=== PATIENT | female | born 1960 | race Caucasian/White ===

== ENCOUNTER 2019-01-13 14:21 | Inpatient (IN) | payer MEDICAID ==
[~2019-01-13] VITALS: Ht 157.5 cm; Wt 52.6 kg
[2019-01-13 14:46] LABS: BASOPHIL % 0.4 % (0-2); PLATELET COUNT 282 x10^3mcL (130-400); RED CELL DISTRIBUTION WIDTH 13.9 % (11.5-14.5)
--- NOTE | 2019-01-13 14:49 | NUR ---
PATIENT AAOX4 PRESENTS TO THE ED WITH C/O ONGOING CHEST PRESSURE X 4 DAYS. PT STS THAT THE PRESSURE RADIATES TO HER BACK AND LEFT ARM. PT HAS BEEN SEEING HER PCP FOR HYPERKALEMIA AND PT WAS RECENTLY PLACED ON A DIET TO CORRECT THE ISSUES. BREATHING E/U, ABD SOFT, NON DISTENDED, NON TENDER. PT C/O NAUSEA THIS MORNING WITH NO EPISODE OF VOMITING. SKIN WARM, DRY AND INTACT. NO OTHER SS OF DISTRESS NOTED. PT PLACED ON ALL MONITORS FOR FURTHER OBSERVATION. WILL CONTINUE TO MONITOR.
--- NOTE | 2019-01-13 15:01 | NUR ---
DR REYEZ BEDSIDE PROVIDING MSE.
[2019-01-13 15:03] LABS: CALCIUM 6.8 mg/dL (8.5-10.1); CARBON DIOXIDE 30.9 mmol/L (21-32); CHLORIDE SERUM 105 mmol/L (98-107); CREATININE SERUM 0.8 mg/dL (0.6-1.0); GFR1 > 60 mL/min; GLUCOSE SERUM 109 mg/dL (74-106); POTASSIUM SERUM 3.9 mmol/L (3.5-5.1); SODIUM SERUM 143 mmol/L (136-145)
[2019-01-13 15:07] LABS: ALBUMIN 4.1 g/dL (3.4-5.0); ALKALINE PHOSPHATASE 105 U/L (46-116); ALT/SGPT 25 U/L (14-59); AST/SGOT 11 U/L (15-37); TOTAL PROTEIN, SERUM 8.1 g/dL (6.4-8.2)
--- NOTE | 2019-01-13 15:18 | NUR ---
MEDICATED PER MD ORDERS
[2019-01-13 15:22] LABS: microscopic required? NO
--- NOTE | 2019-01-13 15:27 | NUR ---
NITRO SL HELD AT THIS TIME. PT STS NO LONGER HAS CHEST PRESSURE. BP 121/79
[2019-01-13 15:53] LABS: urine erythrocyte NEGATIVE (NEGATIVE)
[2019-01-13 15:55] LABS: T4(THYROXINE) 7.6 ug/dL (4.7-13.3)
[2019-01-13 16:29] LABS: AMPHETAMINE QUAL UR NONE DETECTED (See below)
--- NOTE | 2019-01-13 16:36 | NUR ---
PATIENT SITTING ON GURNEY- PT DENIES CHEST PAIN. BREATHING E/U. NAD NOTED.
[2019-01-13] MEDS ORDERED: GOOD SENSE ASPI81 M3 PO (16:47)
[2019-01-13] MEDS ORDERED: ZOCOR20 MG PO (16:47)
[2019-01-13] MEDS ORDERED: BENADRYL ALLERG25 M1 PO (16:47)
[2019-01-13] MEDS ORDERED: BENAZEPRIL HYDR40 M1 PO (16:49)
--- NOTE | 2019-01-13 16:55 | NUR ---
REPORT PROVIDED TO ARELY BARRETO FOR FURTHER CARE OF PATIENT IN TELEMETRY.
--- NOTE | 2019-01-13 17:15 | NUR ---
RECEIVED PT FROM ED VIA JOSE LUIS, CAME IN DUE TO CHEST PAIN. AAOX4. C/O 02/10 HEADACHE. ABLE TO FOLLOW COMMANDS. NO SOB NOTED, LUNG SOUNDS CTA. C/O 10 LEFT SIDED CHEST PAIN DESCRIBED PRESSURE RADIATING ON THE LEFT ARM, SR ON THE MONITOR. C/O NUMBNESS ON THE LEFT ARM. DENIES ABDOMINAL DISCOMFORT. BOWEL SOUNDS ACTIVE. VOIDS. IV SITE PATENT AND INTACT. SIDE RAILS UPX2. CALL LIGHT ON REACH. PRIMARY NURSE ESTEVAN AT BEDSIDE FOR CONTINUITY OF CARE
[2019-01-13 17:29] VITALS: BP 124/74
[2019-01-13 17:35] VITALS: Ht 157.5 cm; Wt 52.6 kg
--- NOTE | 2019-01-13 18:35 | NUR ---
PT LAYING IN BED EATING DINNER. AA/OX4. DENIES CHEST PAIN. DENIES ARREAGA. NO DIZZINESS. NO SOB ON ROOM AIR. CALM/COOPERATIVE. IV WNL TO RFA, SALINE LOCKED. NO N/V. NO S/S OF ACUTE DISTRESS. FAMILY AT BEDSIDE. NSR ON TELE. BED IN LOW POSITION. CALL LIGHT WITHIN REACH. WILL ENDORSE TO ONCOMING SHIFT.
[2019-01-13 19:40] VITALS: BP 110/65
--- NOTE | 2019-01-13 19:51 | NUR ---
RECEIVED PT IN BED AAOX4 FRENCH SPEAKING , PT DENY CHEST PAIN , ON TELE NUMBER 5 THAT SHOWS NSR HR 68, LUNG SOUNDS CTA , ABD SOFT BS ACTIVE X4, HL TO RIGHT F)ARM INTACT FLUSHING WELL , CALL LIGHT WITHIN PT'S REACH , WILL CON'T TO MONITOR AND ASSIST PT WITH CARE .
--- NOTE | 2019-01-14 01:29 | NUR ---
PT'S IS IN BED WITH EYES CLOSED , TELE NSR , HR 78
[2019-01-14 04:49] VITALS: BP 114/71
--- NOTE | 2019-01-14 05:13 | NUR ---
I HAVE REVIEWED THE DATA COLLECTION BY COMMUNICATIONS DIRECTOR (NAME):STEPHANIE NAZARIO ENTERED ON (DATE/TIME): I CONCUR WITH THE DATA AND ANY EXCEPTIONS OR COMMENTS ARE LISTED BELOW:
[2019-01-14 06:09] LABS: BASOPHIL % 0.5 % (0-2); PLATELET COUNT 275 x10^3mcL (130-400); RED CELL DISTRIBUTION WIDTH 14.4 % (11.5-14.5)
--- NOTE | 2019-01-14 06:18 | NUR ---
NO CHANGES OF CONDITION NOTED , ALL DUE MEDS GIVEN NO REACTION NOTED, TELE NSR , HL INTACT FLSHING WELL , PT;S IN BED AND AWAKE .
[2019-01-14 06:31] LABS: CALCIUM 8.8 mg/dL (8.5-10.1); CARBON DIOXIDE 29.8 mmol/L (21-32); CHLORIDE SERUM 108 mmol/L (98-107); CREATININE SERUM 0.7 mg/dL (0.6-1.0); GFR1 > 60 mL/min; GLUCOSE SERUM 86 mg/dL (74-106); MAGNESIUM 2.2 mg/dL (1.8-2.4); POTASSIUM SERUM 4.1 mmol/L (3.5-5.1); SODIUM SERUM 146 mmol/L (136-145)
--- NOTE | 2019-01-14 07:10 | NUR ---
RECEIVED REPORT FROM STEPHANIE GRULLON, PT IN BED IN NO ACUTE DISTRESS
--- NOTE | 2019-01-14 07:25 | NUR ---
PT IN BED, FAMILY AT BEDSIDE, IN NO ACUTE DISTRESS, VERBAL, SAMI/TRISTANIAN, ABLE TO MAKE NEEDS KNOWN, PERLLA, NO REDNESS/DRAINAGE, RESP EVEN, RA, NO SOB/COUGH, CHEST RISE SYMMETRICALLY, TELE # 5, ABD FLAT AND NON-TENDER TO TOUCH, BS ACTIVE, CAP REFILL < 3S, PALP PULSES. SEE SKIN ASSESSMENT, DENIED PAIN/CP/PRESSURE, DENIED N/V/D, IV PATENT AND FLUSHING WELL, DRESSING CDI, AMBULATORY, CONTINENT, ALL NEEDS ADDRESSED AT THIS TIME, SAFETY PROTOCOL FOLLOWED, CONTINUE TO MONITOR
--- NOTE | 2019-01-14 09:10 | NUR ---
PT REPROTED ARREAGA, 06/13, MEDICATED PER EMAR, TAKEN WELL, CONTINUE TO MONITOR
--- NOTE | 2019-01-14 09:42 | NUR ---
AM MED MEDICATED PER EMAR, TOLERATED WELL, EDUCATED R/T ASE GIVEN, VERBALLY UNDERSTANDING, CONTINUE TO MONITOR
[2019-01-14 09:54] VITALS: BP 122/66
[2019-01-14 12:34] VITALS: BP 89/55
--- NOTE | 2019-01-14 13:31 | NUR ---
PT IN BED, IN NO ACUTE DISTRESS, DENIED PAIN/CP/PALPITATION, DENIED N/V/D, DAUGHTER AT BEDSIDE, CONTINUE TO MONITOR
--- NOTE | 2019-01-14 14:15 | NUR ---
PT HAD ECHO AT BEDSIDE, TOLERATED WELL, IN NO ACUTE DISTRESS AT CURRENT TIME, DAUTHER AT BEDSIDE, CONTINUE TO MONITOR
[2019-01-14 15:49] VITALS: BP 106/70
[2019-01-14 16:05] VITALS: BP 121/67
--- NOTE | 2019-01-14 16:27 | NUR ---
DC PAPER SIGNED AND KEPT IN CHART, PT AWARE OF IT'S HER RESPONSIBILITY TO F/O W/ ARRANGED APPOINTMENT W/ PCP, QUESTION ASKED AND ANSWERED, NO FURTHER CONCERNS NEEDED AT THIS TIME, ARUN AT BEDSIDE, IV REMOVED, IV CATH TIP INTACT, NO ACTIVE BLEEDING NOTED, TELE #5 REMOVED AND RETURNED TO [facility], DAUGHTER DRIVE PT HOME, PT ASSISTED TO DAVDI GARCIA BY NURSING STAFFS, PT LEFT IN STABLE CONDITION.
[2019-01-14 16:49] VITALS: BP 154/66
== END 2019-01-14 17:00 | disposition home or self-care (01) | DRG 756 ==
LOC: ED 14:21 → DU 16:16
PROVIDERS: Emergency Medicine; ADMIT Internal Medicine
DX: F43.0 Acute stress reaction (principal); E83.51 Hypocalcemia; F41.1 Generalized anxiety disorder; R51 Headache; R73.03 Prediabetes; I10 Essential (primary) hypertension; E78.5 Hyperlipidemia, unspecified; Z68.1 Body mass index [BMI] 19.9 or less, adult; Z79.82 Long term (current) use of aspirin
CPT/HCPCS: 83880; G0378; Q0092